=== PATIENT | male | born 1985 | race Two or more races ===

== ENCOUNTER 2018-10-26 04:54 | Emergency (ER) | payer OTHER, MEDICAID ==
[~2018-10-26] VITALS: Ht 180.3 cm; Wt 94.8 kg
--- NOTE | 2018-10-26 05:34 | NUR ---
Pt. ambulated into ED w/ epigastric pain x 2 hours, states he woke up w/ 07/04 pain similar to previously experienced acid reflux pain but more severe, pt. reports taking amoxocillin for last 2 weeks for ear infection, no other pert. abd. medical history noted, denies F/C/N/V/D/[employer],
--- NOTE | 2018-10-26 05:43 | NUR ---
at bedside for MSE
[2018-10-26] MEDS ORDERED: ONDANSETRON 4 MG/2 ML VIAL IV ONE (05:45)
[2018-10-26] MEDS ORDERED: IV NORMAL SALINE 1000 ML BAG IV ONE (05:45)
[2018-10-26] MEDS ORDERED: PANTOPRAZOLE SODIUM IV 40 MG in IV DEXTROSE 5% 100 ML IV ONE (05:45)
[2018-10-26] MEDS ORDERED: MORPHINE SULFATE 2 MG/1 ML DISP.SYRIN IV ONE (05:45)
[2018-10-26 05:59] LABS: BASOPHILS % (AUTO) 0.2 % (0.0-2.0); EOSINOPHILS # (AUTO) 0.3 K/uL (0.0-0.7); EOSINOPHILS % (AUTO) 2.6 % (0.0-7.0); HEMATOCRIT 44.8 % (36.7-47.1); HEMOGLOBIN 15.7 g/dL (12.5-16.3); LYMPHOCYTES # (AUTO) 1.4 K/uL (20.0-40.0); LYMPHOCYTES % (AUTO) 14.3 % (20.5-51.5); MEAN CORPUSCULAR HEMOGLOBIN 32.7 uug (23.8-33.4); MEAN CORPUSCULAR HGB CONC 35 g/dL (32.5-36.3); MEAN CORPUSCULAR VOLUME 92.9 fL (73.0-96.2); MONOCYTES # (AUTO) 0.8 K/uL (2.0-10.0); MONOCYTES % (AUTO) 7.8 % (0.0-11.0); NEUTROPHILS # (AUTO) 7.3 K/uL (1.8-8.9); NEUTROPHILS % (AUTO) 75.1 % (38.5-71.5); PLATELET COUNT (AUTO) 262 K/uL (152-348); RED BLOOD CELL COUNT(AUTO) 4.82 MIL/uL (4.06-5.63); WHITE BLOOD COUNT (AUTO) 9.8 K/uL (3.6-10.2)
[2018-10-26] MEDS ORDERED: PANTOPRAZOLE SODIUM 40 MG VIAL ONE (05:59)
[2018-10-26] MEDS ORDERED: ONDANSETRON 4 MG/2 ML VIAL ONE (05:59)
[2018-10-26] MEDS ORDERED: MORPHINE SULFATE 4 MG/1 ML DISP.SYRIN ONE (05:59)
--- NOTE | 2018-10-26 06:00 | NUR ---
Called Radiology for US
[2018-10-26 06:04] LABS: CREATININE 1.1 mg/dL (0.6-1.3); POTASSIUM 3.2 mmol/L (3.5-5.1)
[2018-10-26 06:15] LABS: BILIRUBIN,DIRECT 0.2 mg/dL (0.0-0.2); BILIRUBIN,TOTAL 0.4 mg/dL (0.2-1.0); TOTAL PROTEIN, SERUM 8.1 g/dL (6.4-8.2)
--- NOTE | 2018-10-26 06:26 | NUR ---
Urine specimen collected and sent to lab,
[2018-10-26] MEDS ORDERED: POTASSIUM CHLORIDE 20 MEQ TAB.PRT.SR PO ONE (06:30)
[2018-10-26] MEDS ORDERED: POTASSIUM CHLORIDE 20 MEQ TAB.PRT.SR ONE (06:32)
--- NOTE | 2018-10-26 06:46 | NUR ---
US tech at bedside for abd. US
--- NOTE | 2018-10-26 07:10 | NUR ---
Protonix in Dextrose IV stop time: [id number]
--- NOTE | 2018-10-26 07:13 | NUR ---
Patient discharged to home in stable conditon. Written and verbal after care instructions given. Patient verbalizes understanding of instructions. Pt. d/c w/ prescription per MD order, d/c papers signed, all belongings w/ pt., IV/ID band removed, ambulated out of ED w/ steady gait, left in private vehicle w/ female resident caregiver, NAD
[2018-10-26 07:33] LABS: *BILIRUBIN,URIN NEGATIVE (NEGATIVE); *BLOOD, URINE Trace-lysed (NEGATIVE); *CLARITY,URINE CLEAR (CLEAR); *COLOR,URINE LIGHT YELLOW (YELLOW); *KETONES,URINE NEGATIVE (NEGATIVE); *UROBILINOGEN,URINE 0.2 E.U./dl (NORMAL); LEUKOCYTE ESTERASE ,URINE TRACE (NEGATIVE); NITRITE, URINE NEGATIVE (NEGATIVE); UGLUCOSE NEGATIVE (NEGATIVE)
[2018-10-26 07:40] LABS: RBC,URINE 0-3 /HPF (0-3); WBC,URINE 0-3 /HPF (0-3)
[2018-10-26 07:41] LABS: BACTERIA,URINE FEW /HPF (NONE SEEN)
== END 2018-10-26 07:17 | disposition home or self-care (01) ==
LOC: ER 04:58
DX: K21.9 Gastro-esophageal reflux disease without esophagitis (principal); E87.6 Hypokalemia; K76.0 Fatty (change of) liver, not elsewhere classified; F17.200 Nicotine dependence, unspecified, uncomplicated
CPT/HCPCS: 36415; 76705; 80048; 80076; 81001; 83690; 85025; 93005; 96365; 96375; 99284; C9113; J2270; J2405; J7060 ×2; A4663; J7030

== ENCOUNTER 2021-04-14 11:34 | Emergency (ER) | payer MEDICAID, OTHER ==
[~2021-04-14] VITALS: Ht 180.3 cm; Wt 106.6 kg
[2021-04-14] MEDS ORDERED: ESCI10TA PO (11:42)
[2021-04-14] MEDS ORDERED: ALPR0.255 PO (11:43)
--- NOTE | 2021-04-14 12:00 | NUR ---
at bedside for assessment
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
[2021-04-14] MEDS ORDERED: TDAP DIPH,PERTUSS,TET VAC/PF 0.5 ML DISP.SYRIN IM ONE ×2 (12:15→12:30)
[2021-04-14] MEDS ORDERED: SWABABLE VALVE TRANSFER SET EA MC ONE (12:29)
[2021-04-14] MEDS ORDERED: IV NORMAL SALINE 250 ML IV ONE (12:29)
[2021-04-14] MEDS ORDERED: IOHEXOL 300MG/ML 100 ML INFUS..BTL ONE (12:29)
[2021-04-14 12:42] LABS: HEMATOCRIT 43.1 % (36.7-47.1); MEAN CORPUSCULAR HEMOGLOBIN 31.8 uug (23.8-33.4); MEAN CORPUSCULAR VOLUME 94.6 fL (73.0-96.2); PLATELET COUNT (AUTO) 273 K/uL (152-348)
[2021-04-14 12:43] LABS: CREATININE 0.8 mg/dL (0.6-1.3); POTASSIUM 3.5 mmol/L (3.5-5.1)
[2021-04-14] MEDS ORDERED: ACETAMINOPHEN 325 MG TABLET PO ONE (12:45)
[2021-04-14] MEDS ORDERED: ACETAMINOPHEN 650 MG/20.3 ML LIQUID UDC PO ONE (12:45)
[2021-04-14 12:49] LABS: BILIRUBIN,DIRECT 0.1 mg/dL (0.0-0.2); BILIRUBIN,TOTAL 0.6 mg/dL (0.2-1.0)
[2021-04-14] MEDS ORDERED: ACETAMINOPHEN ES 500 MG TABLET ONE (12:57)
--- NOTE | 2021-04-14 13:09 | NUR ---
PATIENT GOING DOWN FOR CT AT THIS TIME
--- NOTE | 2021-04-14 13:38 | NUR ---
Patient brought back from CT at this time
--- NOTE | 2021-04-14 14:12 | NUR ---
Patient discharged to home in stable condition. No signs of acute distress, all x-ray and CT findings were neagtive. Written and verbal after care instructions given. Patient verbalizes understanding of instructions. Stressed follow up or return to ER for worsening s/s.
[2021-04-14 14:35] VITALS: BP 130/81
== END 2021-04-14 14:12 | disposition home or self-care (01) ==
LOC: ER 11:34
DX: S06.0X0A Concussion without loss of consciousness, initial encounter (principal); S00.83XA Contusion of other part of head, initial encounter; S00.81XA Abrasion of other part of head, initial encounter; S50.812A Abrasion of left forearm, initial encounter; S80.212A Abrasion, left knee, initial encounter; R10.9 Unspecified abdominal pain; V18.4XXA Pedal cycle driver injured in noncollision transport accident in traffic accident, initial encounter; Y93.55 Activity, bike riding; Y92.89 Other specified places as the place of occurrence of the external cause; Z83.3 Family history of diabetes mellitus; Z82.49 Family history of ischemic heart disease and other diseases of the circulatory system
CPT/HCPCS: 36415; 70450; 71260; 72125; 73020; 73060; 73070; 73090; 73100; 73110; 73120; 73130; 74177; 80048; 80076; 83690; 85025; 85730; 90471; 90715; 99285; Q9967; A4663; A9150; J7050